=== PATIENT | female | born 1950 | race Two or more races ===

== ENCOUNTER 2023-11-04 14:58 | Inpatient (IN) | payer OTHER ==
[~2023-11-04] VITALS: Ht 167.6 cm; Wt 49.7 kg
[2023-11-04] MEDS ORDERED: ATOR-2 PO (15:20)
[2023-11-04 15:22] LABS: BASOPHILS % (AUTO) 0.7 % (0.0-2.0); EOSINOPHILS % (AUTO) 5.8 % (1.0-6.0); HEMATOCRIT 29.1 % (36-46); HEMOGLOBIN 9.3 g/dL (12.0-16.0); LYMPHOCYTES # (AUTO) 1.3 K/uL (1.0-4.8); LYMPHOCYTES % (AUTO) 21.6 % (22.0-44.0); MEAN CORPUSCULAR HEMOGLOBIN 29.5 pg (26.0-34.0); MEAN CORPUSCULAR VOLUME 92 fL (80-100); MONOCYTES # (AUTO) 0.7 K/uL (0.1-1.0); MONOCYTES % (AUTO) 12.2 % (2.0-9.0); NEUTROPHILS # (AUTO) 3.6 K/uL (1.8-7.7); NEUTROPHILS % (AUTO) 59.7 % (40.0-70.0); PLATELET COUNT (AUTO) 604 K/uL (150-450); RED BLOOD CELL COUNT(AUTO) 3.16 MIL/uL (4.00-5.20)
[2023-11-04] MEDS ORDERED: ASPI-449 PO (15:22)
[2023-11-04] MEDS ORDERED: GABA-1181 PO (15:22)
[2023-11-04] MEDS ORDERED: CARV12.580 PO (15:23)
[2023-11-04] MEDS ORDERED: AMLO10TA55 PO (15:26)
[2023-11-04] MEDS ORDERED: THIA50TA16 PO (15:26)
[2023-11-04] MEDS ORDERED: FURO-152 PO (15:26)
[2023-11-04] MEDS ORDERED: MULT-711 PO (15:28)
[2023-11-04] MEDS ORDERED: PANT-31 PO (15:28)
[2023-11-04 15:31] LABS: ANION GAP 7 mmol/L (8-16); CARBON DIOXIDE 32 mmol/L (22-29); CHLORIDE 101 mmol/L (98-107); CREATININE 1.19 mg/dL (0.60-1.30); GLOMERULAR FILTR. RATE CALC 45 mL/min (>60); GLUCOSE,RANDOM 104 mg/dL (70-110); SODIUM SERUM 140 mmol/L (136-145); UREA NITROGEN, BLOOD 27 mg/dL (7-18)
[2023-11-04 15:49] LABS: ALCOHOL, BLOOD (SERUM) < 3 mg/dL (0-10)
[2023-11-04 17:16] LABS: COVID AG,FIA SOURCE NASAL SWAB
[2023-11-04 17:20] LABS: APPEARANCE,URINE CLEAR (CLEAR); BILIRUBIN,URINE NEGATIVE (NEGATIVE); COLOR,URINE LIGHT YELLOW (YELLOW); GLUCOSE, URINE (UA) NEGATIVE (NEGATIVE); KETONES,URINE NEGATIVE (NEGATIVE); LEUKOCYTE ESTERASE ,URINE TRACE (NEGATIVE); NITRATE,URINE NEGATIVE (NEGATIVE); OCCULT BLOOD,URINE NEGATIVE (NEGATIVE); PROTEIN,URINE NEGATIVE (NEGATIVE); SPECIFIC GRAVITIY, URINE 1.007 (1.003-1.030); UROBILINOGEN,URINE <=1.0 mg/dL (<=1.0)
[2023-11-04 17:27] LABS: BACTERIA,URINE Rare /HPF (None Seen); RBC,URINE 0-2 /HPF (0-2); SQUAMOUS EPITHELIAL CELL,UR Few /LPF (None Seen)
[2023-11-04 17:28] LABS: ALCOHOL, URINE DRUG SCREEN NEGATIVE (NEGATIVE); AMPHET/METH SCREEN,URINE NEGATIVE (NEGATIVE); BARBITURATE SCREEN, URINE NEGATIVE (NEGATIVE); BENZODIAZEPINES SCREEN,URINE NEGATIVE (NEGATIVE); CANNABINOID SCREEN,URINE NEGATIVE (NEGATIVE); COCAINE SCREEN,URINE NEGATIVE (NEGATIVE); METHADONE SCREEN, URINE NEGATIVE (NEGATIVE); OPIATE SCREEN,URINE NEGATIVE (NEGATIVE); PHENCYCLIDINE SCREEN,URINE NEGATIVE (NEGATIVE)
[2023-11-04 17:38] LABS: SARS-COV2 (COVID) ANTIGEN,FIA Negative (Negative)
[2023-11-04] MEDS ORDERED: THIA100T80 PO (17:38)
[2023-11-04] MEDS: LORazepam 2 MG/ML VIAL IM ONE (17:41)
[2023-11-04] MEDS: DiphenhydrAMINE HCL 50 MG/ML VIAL IM ONE (17:41)
[2023-11-04] MEDS: HALOPERIDOL LACTATE 5 MG/ML VIAL IM ONE (17:41)
[2023-11-05] MEDS: LORazepam 2 MG TABLET PO PRN (13:32)
[2023-11-05] MEDS: CloNIDine HCL 0.1 MG TABLET PO ONE (21:39)
[2023-11-06 04:31] VITALS: BP 133/68; PULSE 80; RESP 18; TEMP 97.3; O2SAT 95
[2023-11-06 09:01] VITALS: BP 171/75; PULSE 72; RESP 17; TEMP 97.6; O2SAT 98
[2023-11-06] MEDS: FUROSEMIDE 20 MG TABLET PO SCH (09:25)
[2023-11-06] MEDS: ATORVASTATIN CALCIUM 40 MG TABLET PO SCH (09:25)
[2023-11-06] MEDS: MULTIVITAMINS, THERAPEUTIC TABLET PO SCH (09:26)
[2023-11-06] MEDS: PANTOPRAZOLE SODIUM 40 MG DR TABLET PO SCH (09:26)
[2023-11-06] MEDS: ASPIRIN 81 MG CHEWABLE TABLET PO SCH (09:26)
[2023-11-06] MEDS: GABAPENTIN 300 MG CAPSULE PO SCH (09:26)
[2023-11-06] MEDS: CARVEDILOL 12.5 MG TABLET PO SCH (09:26)
[2023-11-06] MEDS: THIAMINE 100 MG TABLET PO SCH (09:26)
[2023-11-06] MEDS: AmLODIPine BESYLATE 10 MG TABLET PO SCH (09:26)
[2023-11-06] MEDS: HALOPERIDOL 5 MG TABLET PO PRN (09:27)
[2023-11-06] MEDS ORDERED: MAG HYDROX/ALUMINUM HYD/SIMETH ES 30 ML SUSPENSION UDCUP PO PRN (11:45)
[2023-11-06] MEDS ORDERED: ACETAMINOPHEN 325 MG TABLET PO PRN (11:45)
[2023-11-06] MEDS ORDERED: OMEPRAZOLE 20 MG CAPSULE PO PRN (11:45)
[2023-11-06] MEDS ORDERED: MAGNESIUM HYDROXIDE SUSPENSION 30 ML UDCUP PO PRN (11:45)
[2023-11-06] MEDS ORDERED: ONDANSETRON 4 MG TABLET PO PRN (11:45)
[2023-11-06] MEDS ORDERED: ALBUTEROL SULFATE HFA 90 MCG/PUFF 8 GM INHALER IH PRN (11:45)
[2023-11-06] MEDS ORDERED: BACITRACIN 28 GM OINTMENT TP PRN (11:45)
[2023-11-06] MEDS ORDERED: BENZOCAINE/MENTHOL LOZENGE PO PRN (11:45)
[2023-11-06] MEDS ORDERED: DOCUSATE SODIUM 100 MG CAPSULE PO PRN (11:45)
[2023-11-06] MEDS ORDERED: PETROLATUM,WHITE 28 GM JELLY TP PRN (11:45)
[2023-11-06] MEDS ORDERED: IBUPROFEN 600 MG TABLET PO PRN (11:45)
[2023-11-06 20:14] VITALS: RESP 18
[2023-11-07 08:11] VITALS: BP 124/62; PULSE 59; RESP 17; TEMP 97.1; O2SAT 97
[2023-11-07] MEDS ORDERED: NICOTINE 21 MG/24 HOUR PATCH TD PRN (08:45)
[2023-11-07] MEDS: ETHYL ALCOHOL 62% ANTISEPTIC NASAL SANITIZER 0.6 ML AMPUL NASAL SCH (09:21)
[2023-11-07 16:04] VITALS: BP 117/63; PULSE 78; RESP 18
[2023-11-07] MEDS: MEMANTINE HCL 10 MG TABLET PO SCH (18:05)
[2023-11-07 20:21] VITALS: BP 119/64; PULSE 70; RESP 18; TEMP 97.9
[2023-11-07] MEDS: DONEPEZIL HCL 10 MG TABLET PO SCH (20:46)
[2023-11-07] MEDS: ZOLPIDEM TARTRATE 10 MG TABLET PO PRN (21:13)
[2023-11-08 07:35] LABS: MAGNESIUM 2.5 mg/dL (1.80-2.40); PHOSPHORUS 4.3 mg/dL (2.5-4.9)
[2023-11-08 09:06] VITALS: BP 141/78; PULSE 66; RESP 18; TEMP 97.6; O2SAT 96
[2023-11-08 17:07] VITALS: BP 115/54; PULSE 74; RESP 17
[2023-11-08 20:52] VITALS: BP 142/67; PULSE 67; RESP 18; TEMP 98.7; O2SAT 98
[2023-11-09 08:24] VITALS: BP 139/60; PULSE 64; RESP 17; TEMP 97.6; O2SAT 96
[2023-11-09 20:54] VITALS: BP 148/70; PULSE 78; RESP 18; TEMP 97.8; O2SAT 97
[2023-11-10] MEDS: LOPERAMIDE HCL 2 MG CAPSULE PO PRN (00:13)
[2023-11-10 08:51] VITALS: BP 145/65; PULSE 62; RESP 17; TEMP 97.6; O2SAT 96
[2023-11-10 16:33] VITALS: BP 108/69; PULSE 69; RESP 18; O2SAT 98
[2023-11-10 22:16] VITALS: BP 161/62; PULSE 67; RESP 18; O2SAT 98
[2023-11-11 09:03] VITALS: BP 143/71; PULSE 62; RESP 18; TEMP 97.8; O2SAT 98
[2023-11-11 16:45] VITALS: BP 139/65; PULSE 69; RESP 18; O2SAT 97
[2023-11-11 20:59] VITALS: BP 131/61; PULSE 55; RESP 18; TEMP 98.8; O2SAT 98
[2023-11-12 09:44] VITALS: BP 102/70; PULSE 75; RESP 18; TEMP 97.7; O2SAT 97
[2023-11-12 20:06] VITALS: BP 131/67; PULSE 71; RESP 18; TEMP 97.9; O2SAT 97
[2023-11-13 09:25] VITALS: BP 158/70; PULSE 66; RESP 18; TEMP 97.5; O2SAT 96
[2023-11-13 20:58] VITALS: BP 144/70; PULSE 67; RESP 18; TEMP 98.7; O2SAT 97
[2023-11-14 10:27] VITALS: BP 92/43; PULSE 79; RESP 17; TEMP 98.2; O2SAT 97
[2023-11-14 20:28] VITALS: BP 110/56; PULSE 67; RESP 18; TEMP 98.8; O2SAT 93
[2023-11-15 09:43] VITALS: BP 115/80; PULSE 78; RESP 17; TEMP 98; O2SAT 96
[2023-11-15 20:38] VITALS: BP 140/62; PULSE 65; RESP 18; TEMP 97; O2SAT 97
[2023-11-16 08:00] VITALS: BP 143/80; PULSE 61; RESP 16; TEMP 98.3; O2SAT 98
[2023-11-16 20:53] VITALS: BP 119/60; PULSE 66; RESP 18; TEMP 98; O2SAT 95
[2023-11-17 10:22] VITALS: BP 120/75; PULSE 75; RESP 18; TEMP 97.9; O2SAT 96
[2023-11-17 16:48] VITALS: BP 139/85; PULSE 78; RESP 18; O2SAT 97
[2023-11-17 21:13] VITALS: BP 119/59; PULSE 77; RESP 17; TEMP 98.2; O2SAT 97
[2023-11-18 08:30] VITALS: BP 171/98; PULSE 62; RESP 18; TEMP 97.5; O2SAT 96
[2023-11-18 16:23] VITALS: BP 146/65; PULSE 69; RESP 18; O2SAT 97
[2023-11-18 21:25] VITALS: BP 124/56; PULSE 66; RESP 18; TEMP 97.8; O2SAT 96
[2023-11-19 09:09] VITALS: BP 165/93; PULSE 68; RESP 18; TEMP 97.8; O2SAT 98
[2023-11-19 16:19] VITALS: BP 143/95; PULSE 88; RESP 18; O2SAT 97
[2023-11-19 20:49] VITALS: BP 158/68; PULSE 62; RESP 18; TEMP 97.4; O2SAT 99
[2023-11-20] MEDS: CloNIDine HCL 0.1 MG TABLET PO PRN (10:32)
[2023-11-20 11:32] VITALS: BP 101/61; PULSE 66; RESP 18; TEMP 97.5
[2023-11-20 20:22] VITALS: BP 121/74; PULSE 60; RESP 18; TEMP 98.1; O2SAT 100
[2023-11-21 08:35] VITALS: BP 155/74; PULSE 65; RESP 18; TEMP 97.8; O2SAT 97
[2023-11-21 20:58] VITALS: BP 147/66; PULSE 67; RESP 18; TEMP 97.7; O2SAT 97
[2023-11-22 09:56] VITALS: BP 174/63; PULSE 66; RESP 18; TEMP 97.8; O2SAT 99
[2023-11-22 20:45] VITALS: BP 154/65; PULSE 67; RESP 18; TEMP 98.4; O2SAT 97
[2023-11-23 09:14] VITALS: BP 169/83; PULSE 80; RESP 18; TEMP 98.2; O2SAT 100
[2023-11-23 21:45] VITALS: BP 172/66; PULSE 72; RESP 18; TEMP 96.3; O2SAT 98
[2023-11-24 09:49] VITALS: BP 169/78; PULSE 90; RESP 18; TEMP 98.5; O2SAT 95
[2023-11-24 20:34] VITALS: BP 119/60; PULSE 69; RESP 18; TEMP 98.1; O2SAT 94
[2023-11-25 13:22] VITALS: BP 138/69; PULSE 68; RESP 18; O2SAT 95
[2023-11-25 22:18] VITALS: BP 163/74; PULSE 70; RESP 18; TEMP 97.3; O2SAT 94
[2023-11-26] MEDS: LACTOBACILLUS ACIDOPHILUS/BULGARICUS TABLET PO SCH (08:46)
[2023-11-26 09:14] VITALS: BP 126/62; PULSE 76; RESP 18; O2SAT 96
[2023-11-26 22:31] VITALS: BP 154/61; PULSE 67; RESP 19; TEMP 97.6; O2SAT 98
[2023-11-27 08:55] VITALS: BP 162/74; PULSE 61; RESP 16; TEMP 98.4; O2SAT 96
[2023-11-27] MEDS: CARVEDILOL 25 MG TABLET PO SCH (17:06)
[2023-11-27 21:42] VITALS: BP 141/71; PULSE 72; RESP 17; TEMP 97.8; O2SAT 72
[2023-11-28 09:20] VITALS: BP 134/55; PULSE 70; RESP 18; TEMP 97; O2SAT 98
[2023-11-28 16:45] VITALS: BP 136/66; PULSE 66; RESP 16; TEMP 97.6; O2SAT 95
[2023-11-28] MEDS ORDERED: BREXPIPRAZOLE 0.25 MG TABLET PO PRN (17:15)
[2023-11-28 21:04] VITALS: BP 147/54; PULSE 61; RESP 18; TEMP 96.9; O2SAT 99
[2023-11-28] MEDS: BREXPIPRAZOLE 0.25 MG TABLET PO SCH (23:44)
[2023-11-29 08:15] VITALS: BP 137/72; PULSE 72; RESP 17; TEMP 98.4; O2SAT 99
[2023-11-29 20:23] VITALS: BP 135/53; PULSE 70; RESP 18; TEMP 97.8; O2SAT 97
[2023-11-30 08:00] VITALS: PULSE 68; RESP 18; TEMP 97.1; O2SAT 95
[2023-11-30 09:38] VITALS: BP 154/79; PULSE 85; RESP 18; O2SAT 98
[2023-11-30 16:48] VITALS: BP 120/65; PULSE 69; RESP 18; O2SAT 97
[2023-11-30 21:29] VITALS: BP 103/60; PULSE 67; RESP 16; TEMP 98.5; O2SAT 100
[2023-12-01 10:16] VITALS: BP 148/78; PULSE 78; RESP 18; TEMP 97.8; O2SAT 98
[2023-12-01 17:10] VITALS: BP 144/62; PULSE 65; RESP 20
[2023-12-01 20:40] VITALS: BP 106/71; PULSE 70; RESP 18
[2023-12-01] MEDS: BREXPIPRAZOLE 0.25 MG TABLET PO SCH (21:20)
[2023-12-02 09:32] VITALS: BP 160/57; PULSE 84; RESP 18; TEMP 97.2
[2023-12-02 16:37] VITALS: BP 133/62; PULSE 69; RESP 18
[2023-12-02 20:43] VITALS: BP 118/52; PULSE 60; RESP 18; TEMP 97.3; O2SAT 95
[2023-12-03 10:25] VITALS: BP 172/71; PULSE 61; RESP 18; O2SAT 98
[2023-12-03 13:45] VITALS: BP 113/65; PULSE 82; RESP 19; TEMP 97.2; O2SAT 95
[2023-12-03 20:23] VITALS: BP 145/66; PULSE 60; RESP 19; TEMP 97.2; O2SAT 98
[2023-12-04 09:19] VITALS: BP 162/84; PULSE 57; RESP 16; TEMP 98.1; O2SAT 57
[2023-12-04 20:21] VITALS: BP 105/76; PULSE 71; RESP 18; TEMP 98.1; O2SAT 97
[2023-12-05 08:52] VITALS: BP 156/63; PULSE 59; RESP 17; TEMP 97.5; O2SAT 97
[2023-12-05 20:06] VITALS: BP 122/60; PULSE 65; RESP 18; TEMP 97.5; O2SAT 98
[2023-12-06 10:22] VITALS: BP 169/69; PULSE 62; RESP 17; TEMP 98; O2SAT 96
[2023-12-06 20:32] VITALS: BP 159/48; PULSE 63; RESP 18; TEMP 98.3; O2SAT 92
[2023-12-07 08:37] VITALS: BP 147/78; PULSE 68; RESP 17; TEMP 98.1; O2SAT 100
[2023-12-07 20:51] VITALS: BP 131/61; PULSE 19; RESP 19; TEMP 97.4; O2SAT 98
[2023-12-08 09:34] VITALS: BP 166/98; PULSE 62; RESP 18; TEMP 98.1; O2SAT 97
[2023-12-08 21:17] VITALS: BP 145/66; PULSE 60; RESP 18; TEMP 97.7; O2SAT 98
[2023-12-09 10:49] VITALS: BP 149/73; PULSE 71; RESP 17; TEMP 97.5; O2SAT 96
[2023-12-09 16:50] VITALS: BP 153/67; PULSE 63; RESP 18; O2SAT 96
[2023-12-09 20:38] VITALS: BP 137/52; PULSE 62; RESP 18; TEMP 97.4; O2SAT 98
[2023-12-10 10:33] VITALS: BP 150/66; PULSE 59; RESP 18; TEMP 97.5; O2SAT 95
[2023-12-10 20:43] VITALS: BP 132/69; PULSE 70; RESP 18; TEMP 97.9; O2SAT 96
[2023-12-11 09:39] VITALS: BP 130/59; PULSE 78; RESP 19; TEMP 97.5; O2SAT 98
[2023-12-11 21:28] VITALS: BP 103/54; PULSE 61; RESP 18; O2SAT 98
[2023-12-12 09:51] VITALS: BP 163/100; PULSE 65; RESP 18; TEMP 96.3; O2SAT 97
[2023-12-12 10:30] VITALS: BP 145/86; PULSE 66; RESP 18; TEMP 97; O2SAT 98
[2023-12-12 20:32] VITALS: BP 147/63; PULSE 60; RESP 18; TEMP 97.6; O2SAT 97
[2023-12-13 08:00] VITALS: BP 177/61; PULSE 79; RESP 18; TEMP 97.1; O2SAT 98
[2023-12-13 09:17] VITALS: BP 177/61; PULSE 79; RESP 18; TEMP 97.1; O2SAT 98
[2023-12-13 10:17] VITALS: BP 150/78; PULSE 66; RESP 18; TEMP 97; O2SAT 98
[2023-12-13 16:30] VITALS: BP 131/102; PULSE 78; RESP 18; TEMP 97; O2SAT 98
[2023-12-13 17:30] VITALS: BP 150/55; PULSE 69; RESP 18; TEMP 97; O2SAT 98
[2023-12-13 21:43] VITALS: BP 146/65; PULSE 59; RESP 18; TEMP 98.7; O2SAT 95
[2023-12-14 10:15] VITALS: BP 138/60; PULSE 62; RESP 18; TEMP 98; O2SAT 95
[2023-12-14 22:08] VITALS: BP 147/69; PULSE 64; RESP 18; TEMP 99; O2SAT 95
[2023-12-15 09:37] VITALS: BP 132/65; PULSE 65; RESP 18; TEMP 97.1; O2SAT 97
[2023-12-15 16:55] VITALS: BP 145/62; PULSE 69; RESP 18; O2SAT 98
[2023-12-15 23:06] VITALS: BP 135/63; PULSE 64; RESP 18; TEMP 97.2; O2SAT 98
[2023-12-16 10:21] VITALS: BP 125/56; PULSE 72; RESP 17; TEMP 98.9; O2SAT 96
[2023-12-16 13:05] LABS: GLUCOMETER DEV NAME(LOC) 3E.I 2; GLUCOSE,POINT OF CARE 123 MG/DL (70-110)
== END 2023-12-16 13:05 | disposition short-term general hospital (02) | DRG 885 ==
LOC: EMS 14:58 → 3EC 11-05 21:45 → UNDOADMIN 11-05 21:45 → EMS 11-05 21:52 → 3EC 11-11 05:57 → 3EI 11-11 05:57 → 3EX 11-14 14:30 → 3EI 12-15 20:14
PROVIDERS: ADMIT Psychiatry & Neurology Psychiatry; ATTEND Psychiatry & Neurology Psychiatry
PROC: GZ56ZZZ Individual Psychotherapy, Supportive (ICD-10-PCS; principal; 2023-11-05)
DX: F20.0 Paranoid schizophrenia (principal); N18.9 Chronic kidney disease, unspecified; I13.0 Hypertensive heart and chronic kidney disease with heart failure and stage 1 through stage 4 chronic kidney disease, or unspecified chronic kidney disease; I50.9 Heart failure, unspecified; F03.90 Unspecified dementia, unspecified severity, without behavioral disturbance, psychotic disturbance, mood disturbance, and anxiety; Z20.822 Contact with and (suspected) exposure to COVID-19; F41.9 Anxiety disorder, unspecified; F32.A Depression, unspecified; G47.00 Insomnia, unspecified; G62.9 Polyneuropathy, unspecified; E73.9 Lactose intolerance, unspecified; K59.00 Constipation, unspecified; E78.5 Hyperlipidemia, unspecified; K21.9 Gastro-esophageal reflux disease without esophagitis; J44.9 Chronic obstructive pulmonary disease, unspecified; Z86.73 Personal history of transient ischemic attack (TIA), and cerebral infarction without residual deficits
CPT/HCPCS: 80048; 80307; 81001; 82962; 83735; 84100; 85025; 87081; 96372; 99285; G0378; G0480; J1200; J1630; J2060

== ENCOUNTER 2023-12-16 13:12 | Inpatient (IN) | payer OTHER ==
[~2023-12-16] VITALS: Ht 167.6 cm; Wt 57.0 kg
[~2023-12-16 13:12] MED LIST: AMLO10TA55 PO; ASPI-449 PO; ATOR-2 PO; CARV12.580 PO; FURO-152 PO; GABA-1181 PO; MULT-711 PO; PANT-31 PO; THIA100T80 PO
[2023-12-16] MEDS: SODIUM CHLORIDE 0.9% 1,000 ML IV ONE (14:02)
[2023-12-16 14:08] LABS: EOSINOPHILS % (AUTO) 1.4 % (1.0-6.0); HEMATOCRIT 29.5 % (36-46); HEMOGLOBIN 9.5 g/dL (12.0-16.0); LYMPHOCYTES # (AUTO) 1.9 K/uL (1.0-4.8); LYMPHOCYTES % (AUTO) 22.7 % (22.0-44.0); MEAN CORPUSCULAR HEMOGLOBIN 29.5 pg (26.0-34.0); MEAN CORPUSCULAR HGB CONC 32.2 G/dL (31.0-37.0); MEAN CORPUSCULAR VOLUME 92 fL (80-100); MONOCYTES # (AUTO) 1.1 K/uL (0.1-1.0); MONOCYTES % (AUTO) 13.1 % (2.0-9.0); NEUTROPHILS # (AUTO) 5.1 K/uL (1.8-7.7); NEUTROPHILS % (AUTO) 61.8 % (40.0-70.0); PLATELET COUNT (AUTO) 432 K/uL (150-450); RED BLOOD CELL COUNT(AUTO) 3.21 MIL/uL (4.00-5.20); RED CELL DISTRIBUTION WIDTH 15.8 % (11.5-14.5); WHITE BLOOD COUNT (AUTO) 8.2 K/uL (4.5-11.0)
[2023-12-16 14:11] LABS: CALCIUM, TOTAL 9.2 mg/dL (8.8-10.5); CREATININE 1.28 mg/dL (0.60-1.30); POTASSIUM 3.9 mmol/L (3.5-5.1)
[2023-12-16 14:17] LABS: BILIRUBIN,TOTAL 0.3 mg/dL (0.1-1.0); TOTAL PROTEIN, SERUM 6.9 g/dL (6.4-8.2)
[2023-12-16 14:26] LABS: PROTHROMBIN TIME 10.5 SEC (9.4-11.6)
[2023-12-16 14:29] LABS: TROPONIN I-HIGH SENSITIVITY 17 ng/L (<51)
[2023-12-16] MEDS ORDERED: IPRATROPIUM BROMIDE 0.5 MG/2.5 ML NEB SOLUTION NEB PRN (23:30)
[2023-12-16] MEDS ORDERED: ACETAMINOPHEN 325 MG TABLET PO PRN (23:30)
[2023-12-16] MEDS ORDERED: ALBUTEROL SULFATE 2.5 MG/0.5 ML NEB SOLUTION NEB PRN (23:30)
[2023-12-17 04:00] VITALS: BP 163/77; PULSE 72; RESP 18; O2SAT 98
[2023-12-17 07:16] LABS: BASOPHILS % (AUTO) 0.7 % (0.0-2.0); EOSINOPHILS % (AUTO) 3.1 % (1.0-6.0); HEMATOCRIT 28.6 % (36-46); HEMOGLOBIN 9.5 g/dL (12.0-16.0); LYMPHOCYTES # (AUTO) 1.5 K/uL (1.0-4.8); LYMPHOCYTES % (AUTO) 24.1 % (22.0-44.0); MEAN CORPUSCULAR HEMOGLOBIN 29.8 pg (26.0-34.0); MEAN CORPUSCULAR HGB CONC 33.1 G/dL (31.0-37.0); MEAN CORPUSCULAR VOLUME 90 fL (80-100); MONOCYTES # (AUTO) 0.9 K/uL (0.1-1.0); MONOCYTES % (AUTO) 14.3 % (2.0-9.0); NEUTROPHILS # (AUTO) 3.7 K/uL (1.8-7.7); NEUTROPHILS % (AUTO) 57.8 % (40.0-70.0); PLATELET COUNT (AUTO) 427 K/uL (150-450); RED BLOOD CELL COUNT(AUTO) 3.18 MIL/uL (4.00-5.20); RED CELL DISTRIBUTION WIDTH 15.3 % (11.5-14.5); WHITE BLOOD COUNT (AUTO) 6.3 K/uL (4.5-11.0)
[2023-12-17 07:28] LABS: ALANINE AMINOTRANSFERASE 75 U/L (12-78); ALBUMIN 2.7 g/dL (3.4-5.0); ALKALINE PHOSPHATASE 75 U/L (46-116); ANION GAP 7 mmol/L (8-16); ASPARTATE AMINOTRANSFERASE 52 U/L (15-37); BILIRUBIN,TOTAL 0.2 mg/dL (0.1-1.0); CALCIUM, TOTAL 8.8 mg/dL (8.8-10.5); CARBON DIOXIDE 30 mmol/L (22-29); CHLORIDE 105 mmol/L (98-107); CREATININE 0.82 mg/dL (0.60-1.30); GLOMERULAR FILTR. RATE CALC > 60 mL/min (>60); GLUCOSE,RANDOM 76 mg/dL (70-110); PHOSPHORUS 3.7 mg/dL (2.5-4.9); POTASSIUM 3.4 mmol/L (3.5-5.1); SODIUM SERUM 142 mmol/L (136-145); TOTAL PROTEIN, SERUM 6.5 g/dL (6.4-8.2); UREA NITROGEN, BLOOD 25 mg/dL (7-18)
[2023-12-17 08:30] VITALS: BP 160/70; PULSE 62; RESP 12; TEMP 98.9; O2SAT 93
[2023-12-17] MEDS: PANTOPRAZOLE SODIUM 40 MG DR TABLET PO SCH (08:55)
[2023-12-17] MEDS: ATORVASTATIN CALCIUM 40 MG TABLET PO SCH (08:55)
[2023-12-17] MEDS: ASPIRIN 81 MG DR TABLET PO SCH (08:55)
[2023-12-17] MEDS: MULTIVITAMINS, THERAPEUTIC TABLET PO SCH (08:55)
[2023-12-17] MEDS: AmLODIPine BESYLATE 10 MG TABLET PO SCH (08:55)
[2023-12-17] MEDS: GABAPENTIN 300 MG CAPSULE PO SCH (08:55)
[2023-12-17] MEDS: CARVEDILOL 12.5 MG TABLET PO SCH (08:55)
[2023-12-17] MEDS: FUROSEMIDE 20 MG TABLET PO SCH (08:55)
[2023-12-17] MEDS: THIAMINE 100 MG TABLET PO SCH (08:55)
[2023-12-17] MEDS: POTASSIUM CHLORIDE 20 MEQ ER TABLET PO ONE (11:20)
[2023-12-17] MEDS: LISINOPRIL 5 MG TABLET PO SCH (11:20)
[2023-12-17 11:22] VITALS: BP 115/57; PULSE 56; RESP 12; TEMP 97; O2SAT 98
[2023-12-17 21:20] VITALS: BP 135/72; PULSE 55; RESP 17; TEMP 98.1; O2SAT 94
[2023-12-18 00:30] VITALS: BP 176/76; PULSE 55; RESP 18; TEMP 97.7; O2SAT 98
[2023-12-18 05:00] VITALS: BP 148/64; PULSE 56; RESP 17; TEMP 98.1; O2SAT 95
[2023-12-18 07:29] LABS: EOSINOPHILS % (AUTO) 3.1 % (1.0-6.0); HEMATOCRIT 30.1 % (36-46); HEMOGLOBIN 9.8 g/dL (12.0-16.0); LYMPHOCYTES # (AUTO) 1.6 K/uL (1.0-4.8); LYMPHOCYTES % (AUTO) 27.3 % (22.0-44.0); MEAN CORPUSCULAR HEMOGLOBIN 29.6 pg (26.0-34.0); MEAN CORPUSCULAR HGB CONC 32.7 G/dL (31.0-37.0); MEAN CORPUSCULAR VOLUME 91 fL (80-100); MONOCYTES # (AUTO) 0.9 K/uL (0.1-1.0); MONOCYTES % (AUTO) 14.4 % (2.0-9.0); NEUTROPHILS # (AUTO) 3.3 K/uL (1.8-7.7); NEUTROPHILS % (AUTO) 54.2 % (40.0-70.0); PLATELET COUNT (AUTO) 425 K/uL (150-450); RED BLOOD CELL COUNT(AUTO) 3.33 MIL/uL (4.00-5.20); RED CELL DISTRIBUTION WIDTH 15.7 % (11.5-14.5)
[2023-12-18 07:46] LABS: ANION GAP 8 mmol/L (8-16); CALCIUM, TOTAL 9.2 mg/dL (8.8-10.5); CARBON DIOXIDE 29 mmol/L (22-29); CHLORIDE 104 mmol/L (98-107); CREATININE 0.78 mg/dL (0.60-1.30); GLOMERULAR FILTR. RATE CALC > 60 mL/min (>60); GLUCOSE,RANDOM 72 mg/dL (70-110); POTASSIUM 3.7 mmol/L (3.5-5.1); SODIUM SERUM 141 mmol/L (136-145); UREA NITROGEN, BLOOD 22 mg/dL (7-18)
[2023-12-18] MEDS: FUROSEMIDE 20 MG TABLET PO SCH (08:15)
[2023-12-18 12:09] VITALS: BP 150/81; PULSE 54; RESP 18; TEMP 97.6; O2SAT 96
[2023-12-18 16:45] VITALS: BP 120/65; PULSE 60; RESP 17; TEMP 97.6; O2SAT 96
[2023-12-18 19:54] VITALS: BP 144/91; PULSE 65; RESP 18; TEMP 98.4; O2SAT 97
[2023-12-18 23:18] VITALS: BP 129/59; PULSE 61; RESP 19; TEMP 98.4; O2SAT 96
[2023-12-19 03:51] VITALS: BP 135/62; PULSE 52; RESP 18; TEMP 97.7; O2SAT 95
[2023-12-19 08:21] VITALS: BP 135/67; PULSE 55; RESP 16; TEMP 97.9; O2SAT 96
[2023-12-19 11:13] VITALS: BP 145/73; PULSE 56; RESP 16; TEMP 97.7; O2SAT 97
[2023-12-19] MEDS: MEMANTINE HCL 10 MG TABLET PO SCH (12:09)
[2023-12-19 20:48] VITALS: BP 141/64; PULSE 71; RESP 19; TEMP 98.2; O2SAT 98
[2023-12-20 05:10] VITALS: BP 141/75; PULSE 61; RESP 19; TEMP 98.4; O2SAT 96
[2023-12-20 09:35] VITALS: BP 154/86; PULSE 55; RESP 18; TEMP 97.7; O2SAT 97
[2023-12-20 16:04] VITALS: BP 136/67; PULSE 63; RESP 19; TEMP 98.1; O2SAT 97
[2023-12-20 19:43] VITALS: BP 146/68; PULSE 80; RESP 20; TEMP 98.1; O2SAT 95
[2023-12-21 05:20] VITALS: BP 137/72; PULSE 65; RESP 18; TEMP 98.2; O2SAT 96
[2023-12-21 08:20] VITALS: BP 175/89; PULSE 61; RESP 18; TEMP 97.9; O2SAT 96
[2023-12-21 09:41] VITALS: BP 104/54; PULSE 55; RESP 18; O2SAT 96
[2023-12-21 15:14] VITALS: BP 142/71; PULSE 64; RESP 20; TEMP 98; O2SAT 98
[2023-12-21 20:25] VITALS: BP 132/63; PULSE 67; RESP 20; TEMP 98.4; O2SAT 93
[2023-12-22 05:21] VITALS: BP 133/65; PULSE 61; RESP 20; TEMP 98.2; O2SAT 94
[2023-12-22 10:57] VITALS: BP 114/63; PULSE 61; RESP 20; TEMP 98.2; O2SAT 95
[2023-12-22 16:24] VITALS: BP 132/67; PULSE 60; RESP 20; TEMP 98.4; O2SAT 96
[2023-12-22 20:23] VITALS: BP 150/72; PULSE 72; RESP 20; TEMP 98.4; O2SAT 94
[2023-12-23 05:10] VITALS: BP 146/110; PULSE 62; RESP 20; TEMP 98.1; O2SAT 99
[2023-12-23 07:48] LABS: BASOPHILS % (AUTO) 0.7 % (0.0-2.0); EOSINOPHILS % (AUTO) 3.5 % (1.0-6.0); HEMATOCRIT 32.9 % (36-46); HEMOGLOBIN 10.7 g/dL (12.0-16.0); LYMPHOCYTES # (AUTO) 2.1 K/uL (1.0-4.8); LYMPHOCYTES % (AUTO) 24.8 % (22.0-44.0); MEAN CORPUSCULAR HEMOGLOBIN 29.4 pg (26.0-34.0); MEAN CORPUSCULAR HGB CONC 32.6 G/dL (31.0-37.0); MEAN CORPUSCULAR VOLUME 90 fL (80-100); MONOCYTES # (AUTO) 1.2 K/uL (0.1-1.0); MONOCYTES % (AUTO) 14.5 % (2.0-9.0); NEUTROPHILS # (AUTO) 4.7 K/uL (1.8-7.7); NEUTROPHILS % (AUTO) 56.5 % (40.0-70.0); PLATELET COUNT (AUTO) 431 K/uL (150-450); RED BLOOD CELL COUNT(AUTO) 3.65 MIL/uL (4.00-5.20); RED CELL DISTRIBUTION WIDTH 15.3 % (11.5-14.5); WHITE BLOOD COUNT (AUTO) 8.3 K/uL (4.5-11.0)
[2023-12-23 08:00] VITALS: BP 124/75; PULSE 63; RESP 19; TEMP 98.5; O2SAT 98
[2023-12-23 08:14] LABS: ANION GAP 7 mmol/L (8-16); CARBON DIOXIDE 29 mmol/L (22-29); CHLORIDE 105 mmol/L (98-107); CREATININE 0.78 mg/dL (0.60-1.30); GLUCOSE,RANDOM 85 mg/dL (70-110); POTASSIUM 3.5 mmol/L (3.5-5.1); SODIUM SERUM 141 mmol/L (136-145); UREA NITROGEN, BLOOD 21 mg/dL (7-18)
[2023-12-23 08:15] LABS: ALANINE AMINOTRANSFERASE 97 U/L (12-78); ALBUMIN 2.9 g/dL (3.4-5.0); ALKALINE PHOSPHATASE 80 U/L (46-116); ASPARTATE AMINOTRANSFERASE 67 U/L (15-37); BILIRUBIN,TOTAL 0.4 mg/dL (0.1-1.0); CALCIUM, TOTAL 9.3 mg/dL (8.8-10.5); GLOMERULAR FILTR. RATE CALC > 60 mL/min (>60); PHOSPHORUS 4.6 mg/dL (2.5-4.9)
[2023-12-23 16:22] VITALS: BP 138/71; PULSE 58; RESP 18; TEMP 98.4; O2SAT 97
[2023-12-23 21:27] VITALS: BP 152/66; PULSE 66; RESP 20; TEMP 98.2; O2SAT 97
[2023-12-24 05:47] VITALS: BP 129/57; PULSE 61; RESP 20; TEMP 97.7; O2SAT 95
[2023-12-24 08:00] VITALS: BP 141/73; PULSE 60; RESP 18; TEMP 98.2; O2SAT 95
[2023-12-24 10:06] VITALS: BP 129/79; PULSE 55; RESP 18; TEMP 98.4; O2SAT 94
[2023-12-24] MEDS ORDERED: LISI-892 PO (14:55)
== END 2023-12-24 17:02 | DRG 74 ==
LOC: EMS 13:14 → EDH 12-17 00:28 → 5S 12-17 01:26 → 6S 12-19 13:24
PROVIDERS: ADMIT Internal Medicine; ATTEND Internal Medicine
DX: G90.8 Other disorders of autonomic nervous system (principal); E44.0 Moderate protein-calorie malnutrition; K21.9 Gastro-esophageal reflux disease without esophagitis; I95.9 Hypotension, unspecified; D64.9 Anemia, unspecified; E87.6 Hypokalemia; Z53.20 Procedure and treatment not carried out because of patient's decision for unspecified reasons; Z68.20 Body mass index [BMI] 20.0-20.9, adult; I25.10 Atherosclerotic heart disease of native coronary artery without angina pectoris; I11.0 Hypertensive heart disease with heart failure; I50.9 Heart failure, unspecified; E73.9 Lactose intolerance, unspecified; J44.9 Chronic obstructive pulmonary disease, unspecified; G62.9 Polyneuropathy, unspecified; E78.5 Hyperlipidemia, unspecified; F25.9 Schizoaffective disorder, unspecified; Z86.73 Personal history of transient ischemic attack (TIA), and cerebral infarction without residual deficits
CPT/HCPCS: 70450; 71045; 80048; 80053; 82550; 83735; 83880; 84100; 84132; 84484; 85025; 85610; 85730; 93005; 93306; 93880; 97162; 99285; 36415-L1; 36415-TC